=== PATIENT | female | born 1970 | race African-American/Black ===

== ENCOUNTER 2016-12-29 01:06 | Emergency (ER) | payer BC ==
[~2016-12-29] VITALS: Ht 182.9 cm; Wt 108.9 kg
[~2016-12-29 01:06] MED LIST: FLEXERIL10 MG; IRON1 TAB; MOBIC; NEURONTIN; ZOFRAN; ZOFRAN ODT4 MG/UDTAB PO
[2016-12-29] MEDS ORDERED: LEXAPRO20 MG PO (01:20)
[2016-12-29] MEDS ORDERED: GABAPENTIN300 M2 PO (01:20)
[2016-12-29] MEDS ORDERED: ATORVASTATIN CA80 MG PO (01:21)
[2016-12-29] MEDS ORDERED: FOLIC ACID1 MG PO (01:21)
[2016-12-29] MEDS ORDERED: AZULFIDINE ENT500 MG PO (01:22)
[2016-12-29] MEDS ORDERED: TREXALL7.5 MG PO (01:23)
[2016-12-29 02:53] LABS: BASOPHIL% 0.8 % (0-2.5); EOSINOPHIL# 0.2 X10e3 (0-0.7); HEMATOCRIT 32.1 % (35.0-45.0); HEMOGLOBIN 10.6 gm/dL (12.0-16.0); LYMPHOCYTE# 2.2 X10e3 (1.0-3.5); LYMPHOCYTE% 38.4 % (17.0-45.0); MEAN CELL VOLUME 94.9 FL (83-96); MEAN CORPUSCULAR HEMOGLOBIN 31.2 PG (28-34); MEAN CORPUSCULAR HGB CONC 32.9 g/dL (30-36); MEAN PLATELET VOLUME 8.2 FL (6.5-11.5); MONOCYTE# 0.4 X10e3 (0-1.0); MONOCYTE% 6.4 % (3.0-12.0); NEUTROPHIL# 2.9 X10e3 (1.5-7.1); NEUTROPHIL% 51.4 % (40-75); PLATELET COUNT 266 X10e3 (140-420); RED BLOOD COUNT 3.39 X10e (3.90-5.30); WHITE BLOOD COUNT 5.7 X10e3 (4.0-10.5)
[2016-12-29 02:57] LABS: DIFF IND NO
[2016-12-29 03:25] LABS: ALBUMIN SERUM 3.4 g/dL (3.5-5.0); BILIRUBIN, DIRECT 0.1 mg/dL (0.0-0.2); BILIRUBIN,INDIRECT 0.4 mg/dL (0.0-0.9); BILIRUBIN,TOTAL 0.5 mg/dL (0.2-2.0); BUN/CREATININE RATIO 16.25; CALCIUM SERUM 8.4 mg/dL (8.4-10.2); CREATININE SERUM 0.8 mg/dL (0.6-1.4); GLOM FILT RATE Estimated 103.3 mL/min (>60); MAGNESIUM 1.8 mg/dL (1.6-3.0); POTASSIUM 4.2 mmol/L (3.5-5.1); PROTEIN TOTAL SERUM 6.5 g/dL (6.0-8.3)
== END 2016-12-29 04:03 | disposition home or self-care (01) ==
LOC: SED 01:06
PROVIDERS: Emergency Medicine
DX: R25.2 Cramp and spasm (principal); E87.6 Hypokalemia; Z88.5 Allergy status to narcotic agent; Z88.1 Allergy status to other antibiotic agents; Z79.899 Other long term (current) drug therapy
CPT/HCPCS: 36415; 80048; 80076; 83735; 85025; 96361; 96374; 99283; J1885